=== PATIENT | female | born 1990 | race Caucasian/White ===

== ENCOUNTER 2021-03-12 16:30 | Emergency (ER) | payer MEDICAID ==
[~2021-03-12] VITALS: Ht 162.6 cm; Wt 64.9 kg
[2021-03-12 16:36] VITALS: BP 106/63
[2021-03-12] MEDS ORDERED: BUPIVACAINE 0.25% ONE (16:41)
[2021-03-12] MEDS ORDERED: LIDOCAINE-MPF 1%, 5ML ONE (16:42)
== END 2021-03-12 17:09 | disposition home or self-care (01) ==
LOC: ED 16:47
DX: K08.89 Other specified disorders of teeth and supporting structures (principal)
CPT/HCPCS: 64400; 99284